=== PATIENT | male | born 1990 | race Two or more races ===

== ENCOUNTER 2024-06-15 14:07 | Emergency (ER) | payer BC, OTHER ==
[~2024-06-15] VITALS: Ht 172.7 cm; Wt 61.0 kg
[2024-06-15 14:35] LABS: Basophils # (auto) 0 10 ^3/uL (0-0.2); Basophils % (auto) 0.3 % (0.0-2.0); Eosinophils # (auto) 0 10 ^3/uL (0-0.8); Eosinophils % (auto) 1.1 % (0.0-7.0); Hemoglobin 14.7 g/dL (13.5-17.5); Lymphocytes # (auto) 1.1 10 ^3/uL (0.4-5.4); Lymphocytes % (auto) 31.8 % (10.0-50.0); Mean Corpuscular Hemoglobin 28.6 pg (28.0-32.0); Mean Corpuscular Hgb Conc. 34.1 g/dL (32.0-36.0); Monocytes # (auto) 0.4 10 ^3/uL (0-1.3); Neutrophils % (auto) 56.8 % (37.0-80.0); Nucleated Red Blood Cells % 0.1 %; Red Blood Cells 5.12 10^6/uL (4.5-5.90); Red Cell Distribution Width 14.1 % (11.8-14.3); White Blood Cell 3.5 10^3/uL (4.4-10.8)
[2024-06-15] MEDS: ASPirin 81 mg TAB PO ONE (14:38)
[2024-06-15 14:48] LABS: Chloride 110 mmol/L (98-107); Potassium 3.8 mmol/L (3.5-5.1); Sodium 139 mmol/L (136-145)
[2024-06-15 14:49] LABS: Anion Gap 11 (5-15); Carbon Dioxide 18 mmol/L (20-30)
[2024-06-15 14:54] LABS: BUN/Creatinine Ratio 10.1 (10.0-20.0); Blood Urea Nitrogen 10 mg/dL (9-23); Glucose 136 mg/dL (74-106)
[2024-06-15 16:04] VITALS: BP 114/73; PULSE 61; RESP 15; TEMP 98; O2SAT 100
== END 2024-06-15 16:08 | disposition home or self-care (01) ==
LOC: EDBD 14:07 → ER 14:14
DX: T67.5XXA Heat exhaustion, unspecified, initial encounter (principal); R00.2 Palpitations; X58.XXXA Exposure to other specified factors, initial encounter; Y93.89 Activity, other specified; Y92.89 Other specified places as the place of occurrence of the external cause; Y99.8 Other external cause status
CPT/HCPCS: 36415; 71045; 80048; 84484; 85025; 93005